=== PATIENT | female | born 1945 | race Caucasian/White ===

== ENCOUNTER 2021-05-29 07:31 | Observation (INO) ==
--- NOTE | 2021-02-06 12:10 | PAT Medication Instructions ---
Medication Instructions Date of Service February 06, 2021 Home Medications acebutolol 200 mg capsule 200 mg PO BID albuterol sulfate 90 mcg/actuation aerosol inhaler (ProAir HFA) 2 puff INHALATION Q6H PRN alprazolam 0.25 mg tablet (Xanax) 0.25 mg PO HS cholecalciferol (vitamin D3) 25 mcg (1,000 unit) capsule 75 mcg PO QAM escitalopram oxalate 10 mg tablet (Lexapro) 10 mg PO QAM losartan 25 mg tablet (Cozaar) 25 mg PO QAM rosuvastatin 20 mg tablet (Crestor) 20 mg PO HS wunoelzvdv-lajbwmkdlnhym-qfkvsxbn 50 mg-325 mg-40 mg tablet 1 tab PO Q4H PRN fenofibrate nanocrystallized 145 mg tablet 145 mg PO QAM fluticasone 250 mcg-salmeterol 50 mcg/dose blistr powdr for inhalation (Advair Diskus) 1 inh INHALATION BID ASK your surgeon for instructions jywbobgdkr-gwfogkvapxovm-thdwfalm 50 mg-325 mg-40 mg tablet 1 tab PO Q4H PRN STOP taking 48 hours before surgery fenofibrate nanocrystallized 145 mg tablet 145 mg PO QAM DO NOT take the morning of surgery cholecalciferol (vitamin D3) 25 mcg (1,000 unit) capsule 75 mcg PO QAM losartan 25 mg tablet (Cozaar) 25 mg PO QAM fluticasone 250 mcg-salmeterol 50 mcg/dose blistr powdr for inhalation (Advair Diskus) 1 inh INHALATION BID Take morning of surgery With a small sip of water, OTHERWISE NOTHING TO EAT OR DRINK AFTER MIDNIGHT: acebutolol 200 mg capsule 200 mg PO BID albuterol sulfate 90 mcg/actuation aerosol inhaler (ProAir HFA) 2 puff INHALATION Q6H PRN (use if needed; please bring rescue inhaler with you to hospital day of surgery if possible) escitalopram oxalate 10 mg tablet (Lexapro) 10 mg PO QAM fluticasone 250 mcg-salmeterol 50 mcg/dose blistr powdr for inhalation (Advair Diskus) 1 inh INHALATION BID Take evening before surgery acebutolol 200 mg capsule 200 mg PO BID albuterol sulfate 90 mcg/actuation aerosol inhaler (ProAir HFA) 2 puff INHALATION Q6H PRN (if needed) alprazolam 0.25 mg tablet (Xanax) 0.25 mg PO HS rosuvastatin 20 mg tablet (Crestor) 20 mg PO HS fluticasone 250 mcg-salmeterol 50 mcg/dose blistr powdr for inhalation (Advair Diskus) 1 inh INHALATION BID Other Notes If you have any questions please call us at [phone] or [phone] or [phone] or [phone]
--- NOTE | 2021-02-18 12:34 | Anesthesiology Consultation ---
Date of Service February 18, 2021 Assessment & Plan (1) Encounter for pre-operative examination: Chart Review Chart Review: Acceptable Risk for Surgery (pending cardio clearance and preop Covid testing results ) and Patient seen in Pre Admission Testing Will set up cardio clearance secondary to chest pain. Will await cardio note prior to deciding if patient is Outpatient Joint candidate - Check [facility] AM DOS Per PAT appt on 02/18/21, patient denies any recent travel or large group activities. No known Covid positive exposures or Covid related symptoms. No known Covid infection in the past 90 days. Pt is fully vaccinated for Covid.. Preop Covid testing scheduled 03/25/21 = will await results. Educated on importance of self quarantining, social distancing and wearing mask in public for the patient one week prior to surgery and after Covid testing done Consults Requested cardiac Teaching & Discussion Pre-Anesthesia Teaching/Discussion Notes: Instructed NPO after midnight before surgery,except medications with 15 cc of water. Medication instructions provided according to the [facility] guidelines. History Surgery Operation Date: 03/27/21 08:55 Proposed Procedures p Right Total Knee Arthroplasty - Josh Gaxiola, Height/Weight Height: 5 ft 1.25 in Weight: 73.2 kg Allergies Allergy/AdvReac Type Severity Reaction Status Date / Time hydrocodone AdvReac Mild Vomiting Verified 02/06/21 10:43 Medications Home Medications Medication Instructions Recorded Confirmed Last Taken acebutolol 200 mg capsule 200 mg PO BID 12/03/20 02/06/21 Unknown albuterol sulfate 90 mcg/actuation 2 puff INHALATION Q6H PRN 12/03/20 02/06/21 Unknown aerosol inhaler (ProAir HFA) alprazolam 0.25 mg tablet (Xanax) 0.25 mg PO HS 12/03/20 02/06/21 Unknown cholecalciferol (vitamin D3) 25 75 mcg PO QAM cap 12/03/20 02/06/21 Unknown mcg (1,000 unit) capsule escitalopram oxalate 10 mg tablet 10 mg PO QAM 12/03/20 02/06/21 Unknown (Lexapro) losartan 25 mg tablet (Cozaar) 25 mg PO QAM 12/03/20 02/06/21 Unknown rosuvastatin 20 mg tablet (Crestor) 20 mg PO HS 12/03/20 02/06/21 Unknown wwrpcunrzz-czmvknzykibel-luwfaxtp 1 tab PO Q4H PRN 02/06/21 02/06/21 Unknown 50 mg-325 mg-40 mg tablet fenofibrate nanocrystallized 145 145 mg PO QAM 02/06/21 02/06/21 Unknown mg tablet fluticasone 250 mcg-salmeterol 50 1 inh INHALATION BID 02/06/21 02/06/21 Unknown mcg/dose blistr powdr for inhalation (Advair Diskus) Past Medical History Medical History Anxiety and depression Arthritis Asthma USES PRN INHALER IN COLD AND HUMID WEATHER Diabetes mellitus, type 2 DIET CONTROLLED History of COVID-09 FEBRUARY 2020 (FATIGUE, LOW O2 LEVELS, LOSS OF TASTE/SMELL>ALL SYMPTOMS RES OLVED) History of transfusion 1973- s/p childbirth Hx of encephalopathy FROM SPIDER BITE Completely resolved Hyperlipidemia Hypertension Lesion of brain "VERY SMALL" 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 NGUYEN - last visit > 3 yrs ago per coding director Restless leg syndrome Exercise / Class Metabolic Activity II 4-5 Yardwork/Stairs/Walk up hill (ONE FLIGHT OF STAIRS - NO CHEST PAIN OR SOB ) Past Family History Family History Other No family history of adverse response to anesthesia Past Surgical History Surgical History History of appendectomy History of cataract surgery RT/LEFT History of section X 4 History of cholecystectomy History of colonoscopy History of colposcopy History of hysterectomy Past Anesthesia History No Hx of Anesthesia Complications and No Family Hx of Anesthesia Complications History of PONV No Hx of PONV and No Hx of Motion Sickness Social History Smoking Status: Never smoker Hx Alcohol Use: Yes alcohol intake frequency: holidays/special occasions only substance use type: does not use Review of Systems Occ sharp pain- left upper chest- occurs occ. Last seconds. No associated SOB or nausea. No specific triggers. No chest pain exertion. Snoring unknown. Patient denies shortness of breath, dyspnea on exertion, reflux, cough, wheezing, palpitations. No hx of seizures, [place]. No hx of blood clots. Physical Exam Vital Signs VITALS BP 151/70 P 60 TEMP 98.5 SP02 95% RESP 16 Constitutional no acute distress ENMT Mouth: no TMJ clicking Thyromental Distance: > or= 3.5 Finger Breadths (3.5) Mallampati Class: II Missing molar Neck + limited neck extension (moderate ) Respiratory normal respiratory effort; no respiratory distress Auscultation: lungs clear to auscultation bilaterally; no wheezes Cardiovascular Rate/Rhythm: regular rate and regular rhythm Heart Sounds: no murmur Vessels: no carotid bruit Musculoskeletal Spine: no pain with cervical ROM Extremities: extremities normal to inspection Psychiatric Orientation: alert Lab Results Anesthesia Preop Results Results Anesthesia Widget: WBC 6.29 K/uL (4.8-10.8) 02/18/21 Hgb 12.8 g/dL (12.0-16.0) 02/18/21 Hct 38.8 % (37-47) 02/18/21 Plt 287 K/uL (130-400) 02/18/21 Na 141 mmol/L (136-145) 02/18/21 K 4.0 mmol/L (3.5-5.1) 02/18/21 Cl 109 mmol/L (98-107) H 02/18/21 CO2 28 mmol/L (21-32) 02/18/21 BUN 16 mg/dl (7-18) 02/18/21 Creat 0.87 mg/dl (0.6-1.2) 02/18/21 Glucose Level 108 mg/dl (70-99) H 02/18/21 PT 10.2 Seconds (9.0-12.0) 02/18/21 PTT 25.2 Seconds (21.0-31.0) 02/18/21 INR 1.0 (0.9-1.1) 02/18/21 HA1c 6.6 % (4.5-5.6) H 02/18/21 Blood Type O Positive 02/18/21 Antibody Screen NEGATIVE 02/18/21 Testing Electrocardiogram Date: 02/18/21 Findings: + NSR @ (60bpm ) Normal EKG per cardio. Chest X-Ray Date: 02/18/21 Findings: + NAD Echocardiogram Date: 06/29/17 EF: 60% LV Function: normal Other Findings: no LVH Valvular Disease: + no significant valvular disease No detectable pulmonary HTN
--- NOTE | 2021-05-28 16:19 | History & Physical Report ---
Date of Service May 28, 2021 Assessment & Plan (1) Osteoarthritis of right knee: We will proceed with a right total knee arthroplasty. Postoperatively she will be in our outpatient joint protocol. She will be started on aspirin for DVT prophylaxis and discharged home on oral pain medications. She plans to use [facility] in [place] upon discharge. History of Present Illness Chief Complaint: Osteoarthritis of the right knee. Primary Care Provider: NO PCP Willow is a pleasant 75-year-old female who is been dealing with chronic worsening right knee pain. X-rays and clinical examination have been diagnostic for advanced arthritis of the right knee. After failing conservative treatment, she has elected to proceed with a right total knee arthroplasty.. Allergies Allergy/AdvReac Type Severity Reaction Status Date / Time hydrocodone AdvReac Mild Vomiting Verified 05/26/21 14:51 Home Medications Medication Instructions Recorded Confirmed Type acebutolol 200 mg capsule 200 mg PO BID 12/03/20 05/26/21 History albuterol sulfate 90 mcg/actuation 2 puff INHALATION Q6H PRN 12/03/20 05/26/21 History aerosol inhaler (ProAir HFA) alprazolam 0.25 mg tablet (Xanax) 0.25 mg PO HS 12/03/20 05/26/21 History cholecalciferol (vitamin D3) 25 75 mcg PO QAM cap 12/03/20 05/26/21 History mcg (1,000 unit) capsule escitalopram oxalate 10 mg tablet 10 mg PO QAM 12/03/20 05/26/21 History (Lexapro) losartan 25 mg tablet (Cozaar) 50 mg PO BID 12/03/20 05/26/21 History rosuvastatin 20 mg tablet (Crestor) 20 mg PO HS 12/03/20 05/26/21 History bmclgalvxe-govzarjrongyf-hwqkftdx 1 tab PO Q4H PRN 02/06/21 05/26/21 History 50 mg-325 mg-40 mg tablet fenofibrate nanocrystallized 145 135 mg PO QAM 02/06/21 05/26/21 History mg tablet fluticasone 250 mcg-salmeterol 50 2 inh INHALATION QAM 02/06/21 05/26/21 History mcg/dose blistr powdr for inhalation (Advair Diskus) celecoxib 200 mg capsule (Celebrex) 200 mg PO BID #28 cap 05/27/21 Rx oxycodone-acetaminophen 5 mg-325 1 tab PO Q6H PRN #30 tab 05/27/21 Rx mg tablet (Percocet) Past Med/Surg History Medical History Anxiety and depression UNDER CONTROL Arthritis Asthma USES PRN INHALER IN COLD AND HUMID WEATHER Cellulitis RIGHT KNEE-RESOLVED Diabetes mellitus, type 2 DIET CONTROLLED History of COVID-19 DX'D HOME TEST END 02/2021-MILD COLD SYMPTOMS-RESOLVED JANUARY 2020 (FATIGUE, LOW O2 LEVELS, LOSS OF TASTE/SMELL>ALL SYMPTOMS RESOLVED) History of transfusion 1973- s/p childbirth Hx of encephalopathy FROM SPIDER BITE Completely resolved Hyperlipidemia Hypertension Lesion of brain "VERY SMALL" LESION VIA MRI- QUESTIONABLE STROKE AT AGE 34 (NO NEUROLOGIST)- NO ISSUES SINCE Meckel's diverticulitis HX Migraine Osteoarthritis PVC's (premature ventricular contractions) FOLLOWS WITH [facility]/DR. NGUYEN Restless leg syndrome Surgical History History of appendectomy History of cataract surgery RT/LEFT History of section X 4 History of cholecystectomy History of colonoscopy History of colposcopy History of hysterectomy Family History Other No family history of adverse response to anesthesia Social History Smoking Status: Never smoker Second Hand Exposure: No; Hx Alcohol Use: No Hx Substance Use: No Preferred Language: Ukrainian Communication Ability: Effective Residential Program Worker Required: No Beliefs That Will Affect Care: None Current Living Situation: Spouse current occupational status: retired Feels Safe at Home: Yes Assistive Devices: None Review of Systems All systems reviewed & are unremarkable except as noted in HPI & below. Physical Exam On physical examination of the right knee, she does have a varus deformity. She is range of motion of 0 to 120 degrees. She is no instability. She has pain of the distal medial femoral condyle and over the medial joint line.. Constitutional WD/WN, vitals as above Eyes PERRL, conjunctivae normal, anicteric sclerae ENMT external ear and nose normal, oropharynx normal Neck trachea midline, no thyromegaly Respiratory normal respiratory effort Cardiovascular RRR, no murmur, no edema Gastrointestinal (Abdomen) normal bowel sounds, soft, nontender, no hepatosplenomegaly Psychiatric A+Ox3, euthymic affect Results & Data Results & Data Laboratory Results . Diagnostic Findings X-rays of the right knee show advanced osteoarthritis with joint space narrowing, osteophyte formation, and qgqf-ga-kzfs articulation. PG Care Time/CCT Total # of Minutes Spent Total Time Spent with Patient: Total time spent is greater than 50% in coordination of care (as documented) at patient's floor/unit and/or counseling patient: Coding Level of Care Code None Diagnoses Osteoarthritis of right knee M17.11
[~2021-05-29 07:31] MED LIST: ACETAMINOPHEN 500 MG TAB PO SCH; BUPIVACAINE 0.5 % 5 MG/1 ML PF 10ML VIAL ONE; FAMOTIDINE 20 MG TAB PO SCH; GABAPENTIN 300 MG CAP PO SCH; Ketorolac (*for OR use only*) 30 MG, dexAMETHasone 4 MG, KETAMINE HCL (**OR use only) 1... INFIL SCH; LIDOCAINE 2%/EPINEPHRINE 1:200,000 20 ML SDV ONE; LR 500ML BOLUS, THEN 15ML/HR IV SCH; LR 60ML/HR IV SCH; TRANEXAMIC ACID 1,000 MG **IV Intra-op IV SCH; TRANEXAMIC ACID 1,000 MG **IV Pre-op IV SCH; ceFAZolin 1000MG 1,000 MG/7.5 ML SYR IV SCH; dexAMETHasone 4 MG TAB PO SCH
[2021-05-29 08:13] LABS: Basophils # (auto) 0.06 K/uL (0-0.2); Basophils % (auto) 0.7 %; Eosinophils # (auto) 0.37 K/uL (0-0.5); Eosinophils % (auto) 4.4 %; Hemoglobin 13.3 g/dL (12.0-16.0); Immature Granulocytes # (auto) 0.02 K/uL (0.00-0.02); Immature Granulocytes % (auto) 0.2 %; Lymphocytes # (auto) 2.68 K/uL (1.2-3.4); Lymphocytes % (auto) 31.8 %; Mean Corpuscular Hemoglobin 30.2 pg (25-34); Mean Corpuscular Hgb Conc 34.1 g/dL (32-36); Mean Corpuscular Volume 88.4 fL (80-100); Mean Platelet Volume 9.9 fL (7.4-10.4); Monocytes % (auto) 11.9 %; Platelet Count 298 K/uL (130-400); RDW Coefficient of Variation 13.2 % (11.5-14.5); RDW Standard Deviation 42.7 fL (36.4-46.3); Red Blood Count 4.41 M/uL (4.2-5.4); White Blood Count 8.43 K/uL (4.8-10.8)
[2021-05-29 08:24] LABS: Partial Thromboplastin Ratio 0.9; Partial Thromboplastin Time 25.1 Seconds (21.0-31.0); Prothrombin Time 10.4 Seconds (9.0-12.0)
[2021-05-29 08:31] LABS: Calcium 9.6 mg/dl (8.5-10.1); Creatinine Clr Calc Pharmacy 52.5 ml/min; Est GFR (African American) 75.5 ml/min; Est GFR (Non-African American) 65.2 ml/min; Potassium 3.9 mmol/L (3.5-5.1)
[2021-05-29] MEDS ORDERED: PROPOFOL IV EMULSION 10 MG/ML 20 ML VIAL IV ONE (08:43)
[2021-05-29] MEDS ORDERED: ONDANSETRON INJ 2 MG/ML 2 ML VIAL ONE ×2 (08:43→11:27)
[2021-05-29] MEDS ORDERED: LIDOCAINE 2% 2 ML VIAL/AMP(20MG/ML) INFIL ONE (08:43)
[2021-05-29] MEDS ORDERED: MIDAZOLAM HCL 1 MG/ML 2ML VIAL ONE (08:43)
--- NOTE | 2021-05-29 09:31 | History & Physical Bridge Note ---
Date of Service May 29, 2021 History & Physical Bridge Note I have examined the patient, reviewed the History & Physical and in the interval since the performance of the History & Physical I have noted the following changes of clinical significance: no changes noted
[2021-05-29] MEDS ORDERED: ATROPINE SULFATE 0.1 MG/ML 10ML SYR IV PRN (09:45)
[2021-05-29] MEDS ORDERED: fentaNYL citrate 100 MCG/2 ML VIAL IV PRN (09:45)
[2021-05-29] MEDS ORDERED: ePHEDrine sulfate 50 MG/ML AMP IV PRN (09:45)
[2021-05-29] MEDS ORDERED: ONDANSETRON INJ 2 MG/ML 2 ML VIAL IV PRN ×2 (09:45→16:49)
[2021-05-29] MEDS ORDERED: ORTHO JOINT ANESTHETIC ONE (10:02)
[2021-05-29] MEDS ORDERED: oxyCODONE/ACETAMINOPHEN 5mg/325mg TAB PO PRN (11:41)
--- NOTE | 2021-05-29 11:43 | Operative Report ---
PG Post Operative Report Pre & Post Diagnosis Operation Date: 05/29/21 10:00 Pre-Op Diagnosis: Osteoarthritis of the right knee Post-Op Diagnosis: Osteoarthritis of the right knee I identified the patient and participated in the time-out.: Yes Procedure Operation Date: 05/29/21 10:00 Actual Procedures p Right Total Knee Arthroplasty(Right) - Josh Gaxiola DO Surgeon Josh Gaxiola DO Hub Cutter Josh Loera PAC Estimated Blood Loss 10 Findings Consistent with Post-Op Diagnosis Specimens Right femoral and tibial bone Complications none Disposition Disposition: Recovery Room Indications Willow is a pleasant 75-year-old female who is been doing with chronic increasing right knee pain. X-rays and clinical examination are diagnostic for advanced arthritis of the right knee. After failing conservative treatment, she elected proceed with a right total knee arthroplasty. Description of Procedure Implants used: I used a [employer] Persona total knee arthroplasty system with a size 7 narrow PS femur, D tibia, 31 oval patella, and a size 10 CPS polyethylene bearing. All components were cemented in place with Biomet cement. Willow arrived [facility] for the above procedure. She was seen in the preoperative holding area and the operative extremity was identified and signed. She was given a preoperative antibiotic, TXA, and epidural anesthetic and an adductor nerve block. She was taken back to the operating room and laid on the table in supine position. She was given basic sedation. The operative knee was then prepped and draped in sterile fashion. A timeout wa s done, and the patient and the operative extremity was properly identified. A midline incision was made directly over the patella. Dissection was taken down to the extensor mechanism. A subvastus arthrotomy was used. The medial retinaculum was released and the fat pad was mostly excised. The knee was flexed and the ACL, PCL, and meniscus were removed. A drill was sent down the center of the femoral canal followed by an intramedullary sadia. Off that sadia a distal femoral cutting block was placed. 9 mm was resected off the distal femur at 5 of valgus. A posterior referencing AP sizing guide was then placed on the distal femur. The femur measured to be a size 7. 2 drill holes were placed in 3 of external rotation. A 4-in-1 cutting block was then impacted into place. Anterior, posterior, and chamfer cuts were then made. The proximal tibia was then exposed. An external tibial alignment guide was placed. A tibial cut guide was then anchored in place and the proximal tibia was then resected. The posterior aspect of the knee was then opened up and any additional meniscus fragments and osteophytes were removed. The tibia measured to be a size D. The tibial plate was then placed in the appropriate rotation and the tibia was drilled and punched. Trial components were then placed. I used a size 10 CPS polyethylene insert. The knee was brought through a full range of motion and felt to be stable. The peg holes for the femoral component were then drilled. The patella was then everted and 9 mm was resected off the posterior aspect of the patella. The patella measured to be a size 31 oval. 3 peg holes were then drilled. A trial patella was placed. The knee was once again brought through a full range of motion and felt to be stable. Trial components were then removed. The surrounding soft tissues were injected with 100 cc of an orthopedic pain control cocktail. All components were then cemented into place with Biomet cement. The final polyethylene insert was then snapped into place. Once cement was dry the tourniquet was deflated. Hemostasis was obtained. A dilute betadyne lavage was then done for 3 minutes. The joint was then irrigated with normal saline solution. The subvastus arthrotomy was then closed with #1 Vicryl suture. The skin was closed with 2-0 Vicryl, 3-0V lock suture, and aleta. A soft compressive dressing was placed. She was then transferred to a hospital bed and taken to the postanesthesia care unit in stable condition. She tolerated the procedure well. Josh Loera PA-C, was present for the entire procedure. He was critical for patient positioning, prepping, draping, retraction exposure, wound closure and application of sterile dressing. I attest to the content of the Intraoperative Record and any orders documented therein. Any exceptions are noted below.
--- NOTE | 2021-05-29 12:19 | Anesthesia Procedure Note ---
Date of Service May 29, 2021 Anesthesia Post Epidural Note Vital Signs Vital Signs: Temp Pulse Resp BP Pulse Ox 36.9 C 70 18 159/88 H 95 05/29/21 08:22 05/29/21 08:22 05/29/21 08:22 05/29/21 08:22 05/29/21 08:22 Notes Mental Status: alert / awake / arousable Patient Amnestic to Procedure: Yes Nausea / Vomiting: adequately controlled Pain: adequately controlled Airway Patency, RR, SpO2: stable & adequate BP & HR: stable & adequate Hydration State: stable & adequate Neuraxial Anesthesia: was administered and sensory block is resolving Anesthetic Complications: no major complications apparent and Pt Satisfied with anesthetic care Epidural: Removed without complications
--- NOTE | 2021-05-29 12:46 | XRay Report ---
XR knee RT 1 or 2V routine CLINICAL HISTORY: Surgical Post Op. Status post total knee replacement COMPARISON STUDY: No previous studies for comparison. TECHNIQUE: 2 right knee views FINDINGS: The patient is status post total knee replacement. The prosthetic components are in anatomi c alignment with no acute abnormality seen. Air is present within the soft tissues from the procedure . Skin aleta are seen anteriorly. IMPRESSION: 1. Status post total knee replacement ACT 112: Negative or not required by law. Electronically signed by: Telly Batista M.D. 05/29/2021 12:45 PM
--- NOTE | 2021-05-29 13:12 | Anesthesiology Progress Note ---
Date of Service May 29, 2021 Anesthesia Post Procedure Vital Signs Vital Signs: Temp Pulse Pulse Resp BP BP Pulse Ox 05/29/21 12:50 98.1 F 62 16 99/62 L 92 05/29/21 12:45 97.7 F 64 17 129/67 92 05/29/21 12:35 62 16 129/87 94 05/29/21 12:25 64 17 135/73 92 05/29/21 12:15 66 13 129/78 98 05/29/21 12:05 98.6 F 67 15 133/72 98 05/29/21 08:22 98.4 F 70 18 159/88 H 95 Pain Intensity Right Knee: Pain Intensity: 4 Transfer of Care Handoff Completed per policy Notes Mental Status: alert / awake / arousable and participated in evaluation Patient Amnestic to Procedure: Yes Nausea / Vomiting: adequately controlled Pain: adequately controlled Airway Patency, RR, SpO2: stable & adequate BP & HR: stable & adequate Hydration State: stable & adequate Neuraxial Anesthesia: was administered and sensory block is resolving Anesthetic Complications: no major complications apparent and Pt Satisfied with anesthetic care
[2021-05-29] MEDS ORDERED: bisacodyL 10 MG SUPP PR PRN (16:49)
[2021-05-29] MEDS ORDERED: HYDROmorphone INJ 0.5 MG/0.5 ML SYR IV PRN (16:49)
[2021-05-29] MEDS ORDERED: METOCLOPRAMIDE HCL INJ 5 MG/ML 2 ML VIAL IV PRN (16:49)
[2021-05-29] MEDS ORDERED: NALOXONE HCL 0.4 MG/1 ML VIAL/CARP IV PRN (16:49)
[2021-05-29] MEDS ORDERED: MAGNESIUM HYDROXIDE SUSP 30 ML UDC PO PRN (16:49)
[2021-05-29] MEDS ORDERED: ALBUTEROL HFA 8 GM INHALER INH PRN (16:59)
[2021-05-29] MEDS: SODIUM CHLORIDE 0.9% 1000ML 1,000 ML IV SCH (17:03)
[2021-05-29] MEDS: KETOROLAC TROMETHAMINE 15 MG/ML VIAL IV SCH (18:04)
[2021-05-29] MEDS: DOCUSATE SODIUM 100 MG CAP PO SCH (20:04)
[2021-05-29] MEDS: ASPIRIN 81 MG ECTAB PO SCH (20:04)
[2021-05-29] MEDS: LOSARTAN POTASSIUM 50 MG TAB PO SCH (20:05)
[2021-05-29] MEDS: ACEBUTOLOL HCL 200 MG CAPSULE PO SCH (20:05)
[2021-05-29] MEDS ORDERED: ALPRAZolam 0.25 MG TABLET PO SCH (21:00)
[2021-05-29] MEDS ORDERED: ROSUVASTATIN CALCIUM 20 MG TAB PO SCH (21:00)
[2021-05-29] MEDS ORDERED: SENNA 8.6 MG TAB PO SCH (21:00)
[2021-05-29] MEDS: ACETAMINOPHEN 500 MG TAB PO SCH (21:50)
[2021-05-29] MEDS: ceFAZolin 2000MG 2,000 MG/15 ML SYR IV SCH (21:51)
[2021-05-30] MEDS: KETOROLAC TROMETHAMINE 15 MG/ML VIAL IV SCH ×2 (00:13→05:15)
[2021-05-30] MEDS: oxyCODONE HCL IR 5 MG TAB (IMMEDIATE RELEASE) PO PRN ×3 (00:19→10:45)
[2021-05-30] MEDS: SODIUM CHLORIDE 0.9% 1000ML 1,000 ML IV SCH (03:20)
[2021-05-30] MEDS: ACETAMINOPHEN 500 MG TAB PO SCH (05:14)
[2021-05-30] MEDS: ceFAZolin 2000MG 2,000 MG/15 ML SYR IV SCH (05:51)
[2021-05-30] MEDS ORDERED: dexAMETHasone 4 MG TAB PO SCH (08:00)
--- NOTE | 2021-05-30 08:23 | Orthopedic Progress Note ---
Date of Service May 30, 2021 Assessment & Plan (1) Status post right knee replacement: Overall she is doing fairly well. She will be seen by physical therapy today for ambulation and range of motion exercises. She is on aspirin for DVT prophylaxis. She can be discharged home later today. She will follow-up with orthopedics in 2 weeks. Aron Daugherty was seen and examined at bedside this morning. Overall she is doing fairly well. Still having too much pain in the right knee. She has a little bit more motion in her leg today. She has been up and ambulating to the bathroom. She has no complaints.. Review of Systems All systems reviewed & are unremarkable except as noted in HPI & below. Physical Exam On physical examination of the right knee, the dressing is clean and dry. Her legs out full extension. She has active dorsiflexion plantarflexion of the right ankle.. Results & Data Results & Data Laboratory Results . Diagnostic Findings Postoperative x-rays of the right knee show the prosthesis to be in anatomic alignment without any evidence of fracture, screws, or loosening. PG Care Time/CCT Total # of Minutes Spent Total Time Spent with Patient: Total time spent is greater than 50% in coordination of care (as documented) at patient's floor/unit and/or counseling patient: Coding Level of Care Code 63544 Post Operative Follow-Up Diagnoses Status post right knee replacement Z96.651
--- NOTE | 2021-05-30 08:24 | Discharge Summary ---
Date of Service May 30, 2021 Admission HPI (Per Admitting) Willow is a pleasant 75-year-old female who is been dealing with chronic worsening right knee pain. X-rays and clinical examination have been diagnostic for advanced arthritis of the right knee. After failing conservative treatment, she has elected to proceed with a right total knee arthroplasty.. Admission Exam (Per Admitting) On physical examination of the right knee, she does have a varus deformity. She is range of motion of 0 to 120 degrees. She is no instability. She has pain of the distal medial femoral condyle and over the medial joint line.. Principal Diagnosis Same as "Discharge Diagnosis" noted below under Discharge Instructions. Discharge Exam On physical examination of the right knee, the dressing is clean and dry. Her legs out full extension. She has active dorsiflexion plantarflexion of the right ankle.. Discharge Data Procedures Performed Operation Date: 05/29/21 10:00 Actual Procedures p Right Total Knee Arthroplasty(Right) - Josh Gaxiola DO Ordered Studies 05/29/21 05:00 US - OR guided needle placemen Routine Hospital Course (1) Status post right knee replacement: On May 29, 2021 Willow arrived at [facility] and underwent a right knee replaced without complication. Postoperatively she was started on aspirin for DVT prophylaxis. She was initially in our outpatient joint protocol. Unfortunately she did not do well with physical therapy. She was having too much weakness in the right leg so she was admitted overnight. She was then transferred to the general orthopedic floors. On postop day #1 her vital signs were stable and her pain was well controlled. She was able to participate well with physical therapy doing ambulation and range of motion exercises. She was then discharged home. She will follow with orthopedics in 2 weeks. PG Care Time/CCT Total # of Minutes Spent Total Time Spent with Patient: Total time spent is greater than 50% in coordination of care (as documented) at patient's floor/unit and/or counseling patient: Discharge Plan Discharge Items Reason For Visit: POST OP Discharge Diagnosis: Right knee replacement Activity: Resume your previous activity Call non-emergency contact if: your wound has increased redness and your wound has increased drainage Follow-up/Referrals: [facility] [Outside] Doretha Liao MD [Primary Care Provider] - Addtl Attending Provider Instructions: Activity and Therapy Recommendations: * If you are using [facility] then therapy will be provided at your home until they feel you have accomplished all of your goals. * If you are using [facility] then Physical Therapy will be provided until they feel you are ready to start Outpatient Physical Therapy. * If you are not using home therapy then Outpatient Physical Therapy should start about 3-5 days from your day of surgery. Therapy will last about 6-10 weeks * It is important not to put a pillow under your knee when you are relaxing or sleeping. It is just as important to make sure you are getting your knee perfectly straight as it is to regain your knee bend. * You were shown a series of exercises in the hospital. Do these exercises three times each day including the exercises you were shown in physical therapy. * Get up and walk several times each day. For the first four weeks, try not to stand or walk for more than one hour at a time. If you do stand or walk for more than one hour, you will not hurt anything, but your leg will likely swell. * As you feel comfortable, you may change from the walker or crutches to a cane and then to independent walking. Medications: * Narcotic You will likely be sent home from the hospital with a prescription for the narcotic pain medication that worked best throughout your stay. * Aspirin Most patients will be required to take Aspirin 81mg twice a day for 6 weeks after surgery. This is obtained [id number] and a prescription is not necessary. * Other medications may be prescribed for specific circumstances. If you have any questions, please call the office at . * Resume previous home medications unless otherwise instructed TEDs/Elastic Stockings: The white elastic stockings help limit swelling and prevent blood clots from forming in your legs.~ The more you wear them, the more they work. Wear them for six weeks. Dressing Care: The dressing can be changed after physical therapy on postop day #1. Daily dry dressing changes for a few days, especially if the incision is still draining some. If the incision is not draining then you may leave the aleta open to air. If there is a little bit of drainage or if the aleta are getting stuck on your clothing then cover the incision with a dry dressing. The aleta will be removed at your 2 week follow-up appointment. Showering: You may shower 5 days from the day of surgery as long as the incision is no longer draining. You may shower with the aleta exposed. Let soapy water run over the aleta and pat them dry. Do not scrub or soak the incision. Things To Watch For: * Drainage from the incision site that occurs more than one week after your surgery. * Increased redness at the incision site. * Fever above 102 degrees Fahrenheit. * Unusual chest pain or shortness of breath. * Call [facility] at with any of the above problems Follow-Up Visit: Follow-up with Dr. Gaxiola's PA (Josh Loera) 2-3 weeks after your day of surgery. He will remove your aleta and answer any questions. If you have any additional questions or concerns, Dr Gaxiola is usually in the office at the same time and will be available An appointment was probably scheduled when you signed-up for surgery in the office. If you have any questions call Office Instructions: More detailed instructions as well as Frequently Asked Questions were provided in a folder by our office when you signed-up for surgery. Please review these instructions when you get home. If you have any further questions or concerns, please feel free to call the office at [phone] Pending Studies at Discharge: No Stand-Alone Forms: My [facility] Medications and DC Order Prescriptions: New aspirin [Adult Aspirin Regimen] 81 mg tablet,delayed release (DR/EC) 81 mg PO BID Qty: 84 RF: 0 Continued celecoxib [Celebrex] 200 mg capsule 200 mg PO BID Qty: 28 RF: 0 oxycodone-acetaminophen [Percocet] 5-325 mg tablet 1 tab PO Q6H PRN (Reason: pain) Qty: 30 RF: 0 acebutolol 200 mg capsule 200 mg PO BID RF: 0 losartan [Cozaar] 25 mg tablet 50 mg PO BID RF: 0 rosuvastatin [Crestor] 20 mg tablet 20 mg PO HS RF: 0 escitalopram oxalate [Lexapro] 10 mg tablet 10 mg PO QAM RF: 0 albuterol sulfate [ProAir HFA] 90 mcg/actuation HFA aerosol inhaler 2 puff inhalation Q6H PRN (Reason: SHORT OF BREATH) RF: 0 alprazolam [Xanax] 0.25 mg tablet 0.25 mg PO HS RF: 0 cholecalciferol (vitamin D3) 25 mcg (1,000 unit) capsule 75 mcg PO QAM RF: 0 fluticasone propion-salmeterol [Advair Diskus] 250-50 mcg/dose Blister With Device 2 inh INHALATION QAM RF: 0 gbnhvcspcl-htlwoqpjerwqe-ggxl 50-325-40 mg Tablet 1 tab PO Q4H PRN (Reason: Migraine Headache) RF: 0 fenofibrate nanocrystallized [Tricor] 145 mg Tablet 135 mg PO QAM RF: 0 Admission Data Admit Date/Time: 05/29/21 15:49 Attending Provider: Josh Gaxiola Admit Provider: Josh Gaxiola Primary Care Provider: Doretha Liao V.
[2021-05-30] MEDS: ACEBUTOLOL HCL 200 MG CAPSULE PO SCH (08:44)
[2021-05-30] MEDS: ASPIRIN 81 MG ECTAB PO SCH (08:44)
[2021-05-30] MEDS: DOCUSATE SODIUM 100 MG CAP PO SCH (08:45)
[2021-05-30] MEDS: LOSARTAN POTASSIUM 50 MG TAB PO SCH (08:47)
[2021-05-30] MEDS ORDERED: MULTIVITAMIN TAB PO SCH (09:00)
[2021-05-30] MEDS ORDERED: ESCITALOPRAM OXALATE 10 MG TAB PO SCH (09:00)
[2021-05-30] MEDS ORDERED: FLUTICASONE/VILANTEROL 200/25MCG 14 PUFFS/INHALER INH SCH (09:00)
== END 2021-05-30 10:53 | disposition home health service (06) ==
LOC: ASU 07:31 → 3E 07:31

== ENCOUNTER 2022-04-23 07:48 | Observation (INO) ==
--- NOTE | 2022-03-29 10:34 | PAT Medication Instructions ---
Medication Instructions Date of Service March 29, 2022 Home Medications Medication Instructions Recorded celecoxib 200 mg capsule (Celebrex) 200 mg PO BID #28 caps 05/27/21 oxycodone-acetaminophen 5 mg-325 1 tab PO Q6H PRN pain #30 tabs 05/27/21 mg tablet (Percocet) aspirin 81 mg tablet,delayed 81 mg PO BID #84 tabs 05/29/21 release (Adult Aspirin Regimen) oxycodone-acetaminophen 5 mg-325 1 tab PO Q6H PRN pain #30 tabs 06/15/21 mg tablet (Percocet) doxycycline hyclate 100 mg tablet 100 mg PO BID 10 days #20 tabs 06/22/21 ibuprofen 600 mg tablet 600 mg PO TID PRN pain #90 tabs 07/28/21 oxycodone-acetaminophen 5 mg-325 1 tab PO Q6H PRN pain #30 tabs 07/28/21 mg tablet (Percocet) tramadol 50 mg tablet 50 mg PO Q6H PRN pain #20 tabs 09/01/21 acebutolol 200 mg capsule 200 mg PO BID albuterol sulfate 90 mcg/actuation aerosol inhaler (ProAir HFA) 2 puff inhalation Q6H PRN SHORT OF BREATH alprazolam 0.25 mg tablet (Xanax) 0.25 mg PO HS cholecalciferol (vitamin D3) 25 mcg (1,000 unit) capsule 75 mcg PO QAM escitalopram oxalate 10 mg tablet (Lexapro) 10 mg PO QAM losartan 25 mg tablet (Cozaar) 50 mg PO BID rosuvastatin 20 mg tablet (Crestor) 20 mg PO HS oxzcseilge-unzwjwmccgxos-xpwqxdgl 50 mg-325 mg-40 mg tablet 1 tab PO Q4H PRN Migraine Headache fenofibrate nanocrystallized 145 mg tablet (Tricor) 135 mg PO QAM fluticasone 250 mcg-salmeterol 50 mcg/dose blistr powdr for inhalation (Advair Diskus) 2 inh inhalation HS celecoxib 200 mg capsule (Celebrex) 200 mg PO BID oxycodone-acetaminophen 5 mg-325 mg tablet (Percocet) 1 tab PO Q6H PRN pain aspirin 81 mg tablet,delayed release (Adult Aspirin Regimen) 81 mg PO BID oxycodone-acetaminophen 5 mg-325 mg tablet (Percocet) 1 tab PO Q6H PRN pain doxycycline hyclate 100 mg tablet 100 mg PO BID ibuprofen 600 mg tablet 600 mg PO TID PRN pain oxycodone-acetaminophen 5 mg-325 mg tablet (Percocet) 1 tab PO Q6H PRN pain tramadol 50 mg tablet 50 mg PO Q6H PRN pain tiotropium bromide 2.5 mcg/actuation mist for inhalation (Spiriva Respimat) 2 inh inhalation QAM Continue as directed doxycycline hyclate 100 mg tablet 100 mg PO BID ASK your surgeon for instructions celecoxib 200 mg capsule (Celebrex) 200 mg PO BID ibuprofen 600 mg tablet 600 mg PO TID PRN pain cpxiyelnqx-gscshfbfmzory-giquyswi 50 mg-325 mg-40 mg tablet 1 tab PO Q4H PRN Migraine Headache ASK your prescriber and surgeon aspirin 81 mg tablet,delayed release (Adult Aspirin Regimen) 81 mg PO BID STOP taking 48 hours before surgery fenofibrate nanocrystallized 145 mg tablet (Tricor) 135 mg PO QAM DO NOT take the morning of surgery cholecalciferol (vitamin D3) 25 mcg (1,000 unit) capsule 75 mcg PO QAM losartan 25 mg tablet (Cozaar) 50 mg PO BID Take morning of surgery With a small sip of water, OTHERWISE NOTHING TO EAT OR DRINK AFTER MIDNIGHT: acebutolol 200 mg capsule 200 mg PO BID albuterol sulfate 90 mcg/actuation aerosol inhaler (ProAir HFA) 2 puff inhalati on Q6H PRN SHORT OF BREATH (use if needed; please bring rescue inhaler with you to hospital day of surgery if possible) escitalopram oxalate 10 mg tablet (Lexapro) 10 mg PO QAM oxycodone-acetaminophen 5 mg-325 mg tablet (Percocet) 1 tab PO Q6H PRN pain (if needed) oxycodone-acetaminophen 5 mg-325 mg tablet (Percocet) 1 tab PO Q6H PRN pain (if needed) oxycodone-acetaminophen 5 mg-325 mg tablet (Percocet) 1 tab PO Q6H PRN pain (if needed) tramadol 50 mg tablet 50 mg PO Q6H PRN pain (if needed) tiotropium bromide 2.5 mcg/actuation mist for inhalation (Spiriva Respimat) 2 inh inhalation QAM Take evening before surgery acebutolol 200 mg capsule 200 mg PO BID albuterol sulfate 90 mcg/actuation aerosol inhaler (ProAir HFA) 2 puff inhalation Q6H PRN SHORT OF BREATH (if needed) alprazolam 0.25 mg tablet (Xanax) 0.25 mg PO HS losartan 25 mg tablet (Cozaar) 50 mg PO BID rosuvastatin 20 mg tablet (Crestor) 20 mg PO HS fluticasone 250 mcg-salmeterol 50 mcg/dose blistr powdr for inhalation (Advair Diskus) 2 inh inhalation HS oxycodone-acetaminophen 5 mg-325 mg tablet (Percocet) 1 tab PO Q6H PRN pain (if needed) oxycodone-acetaminophen 5 mg-325 mg tablet (Percocet) 1 tab PO Q6H PRN pain (if needed) oxycodone-acetaminophen 5 mg-325 mg tablet (Percocet) 1 tab PO Q6H PRN pain (if needed) tramadol 50 mg tablet 50 mg PO Q6H PRN pain (if needed) Other Notes If you have any questions please call us at [phone] or [phone] or [phone] or [phone]
--- NOTE | 2022-03-31 12:26 | Anesthesiology Consultation ---
Date of Service March 31, 2022 Assessment & Plan (1) Encounter for pre-operative examination: - COVID screening: Per assessment on 03/31: No known COVID-19 positive contacts or current COVID-19 related symptoms. Travel screen negative. Patient vaccinated. At surgeon discretion if preop Covid testing being done. - S/P Right TKA (05/29/21): SAB at L4-5 + PNB at [facility]. No issues noted per post-op anesthesia progress note.Per discharge summary 05/30/21, "She was initially in our outpatient joint protocol. Unfortunately she did not do well with physical therapy. She was having too much weakness in the right leg so she was admitted overnight. She was then transferred to the general orthopedic floors. On postop day #1 her vital signs were stable and her pain was well controlled. She was able to participate well with physical therapy doing ambulation and range of motion exercises. She was then discharged home." - Outpatient joint assessment: Pt currently scheduled for inpatient pathway. Patient seen at [facility] 03/31. Patient voiced concern about consideration for outpatient and states she would not wish to be done through outpatient pathway due to issues post-operatively with right TKA (done 05/2021 at [facility]- see above for further details). - Check BSG AM DOS - Cardiology office visit (03/09/22): "ECG reviewed. This indicates sinus rhythm with heart rate 62. Significant ST/Twave abnormalities are not present. Ventricular ectopy is not present. Patient notes increase in palpitations especially over the holidays. In the past she was noted to have PVCs with complaints of palpitations. She had been started on acebutolol with resolution of ventricular ectopy. Her symptoms have returned. intravenous therapy nurse x14 days will be obtained to evaluate for dysrhythmia. Consideration may need to be given to increase dosage of acebutolol. Blood pressure slightly elevated today. Losartan has been increased at her last office visit to improve hypertensive management. Will reassess blood pressure at her next office visit. If remain elevated, medications will need to be adjusted." Per patient, holter monitor completed- awaiting recent holter monitor report ([facility] [place] office- per pt, done 02/2022) Chart Review Chart Review: Patient seen in Pre Admission Testing Teaching & Discussion Pre-Anesthesia Teaching/Discussion Notes: Instructed NPO after midnight before surgery,except medications with 15 cc of water. Medication instructions provided according to the PAT guidelines. History Surgery Operation Date: 04/23/22 09:15 Proposed Procedures p Left Total Knee Arthroplasty - Josh Gaxiola, Height/Weight Height: 5 ft 1.5 in Weight: 73.7 kg Allergies Allergy/AdvReac Type Severity Reaction Status Date / Time hydrocodone AdvReac Mild Vomiting Verified 03/29/22 07:59 Medications Home Medications Medication Instructions Recorded Confirmed Last Taken acebutolol 200 mg capsule 200 mg PO BID 12/03/20 03/29/22 05/29/21 07:00 albuterol sulfate 90 mcg/actuation 2 puff inhalation Q6H PRN SHORT OF 12/03/20 03/29/22 05/29/21 07:00 aerosol inhaler (ProAir HFA) BREATH alprazolam 0.25 mg tablet (Xanax) 0.25 mg PO HS 12/03/20 03/29/22 05/28/21 23:00 cholecalciferol (vitamin D3) 25 75 mcg PO QAM 12/03/20 03/29/22 03/24/21 mcg (1,000 unit) capsule escitalopram oxalate 10 mg tablet 10 mg PO QAM 12/03/20 03/29/22 05/28/21 07:00 (Lexapro) losartan 25 mg tablet (Cozaar) 50 mg PO BID 12/03/20 03/29/22 05/28/21 22:00 rosuvastatin 20 mg tablet (Crestor) 20 mg PO HS 12/03/20 03/29/22 05/11/21 elwaabzqsm-tjmjbengveyvr-lncftxjw 1 tab PO Q4H PRN Migraine Headache 02/06/21 03/29/22 05/26/21 50 mg-325 mg-40 mg tablet fenofibrate nanocrystallized 145 135 mg PO QAM 02/06/21 03/29/22 05/11/21 mg tablet (Tricor) fluticasone 250 mcg-salmeterol 50 2 inh inhalation HS 02/06/21 03/29/22 Unknown mcg/dose blistr powdr for inhalation (Advair Diskus) celecoxib 200 mg capsule (Celebrex) 200 mg PO BID #28 caps 05/27/21 03/29/22 Unknown oxycodone-acetaminophen 5 mg-325 1 tab PO Q6H PRN pain #30 tabs 05/27/21 Unknown mg tablet (Percocet) aspirin 81 mg tablet,delayed 81 mg PO BID #84 tabs 05/29/21 03/29/22 Unknown release (Adult Aspirin Regimen) oxycodone-acetaminophen 5 mg-325 1 tab PO Q6H PRN pain #30 tabs 06/15/21 03/29/22 Unknown mg tablet (Percocet) ibuprofen 600 mg tablet 600 mg PO TID PRN pain #90 tabs 07/28/21 03/29/22 Unknown oxycodone-acetaminophen 5 mg-325 1 tab PO Q6H PRN pain #30 tabs 07/28/21 03/29/22 Unknown mg tablet (Percocet) tramadol 50 mg tablet 50 mg PO Q6H PRN pain #20 tabs 09/01/21 03/29/22 Unknown tiotropium bromide 2.5 2 inh inhalation QAM 03/29/22 03/29/22 Unknown mcg/actuation mist for inhalation (Spiriva Respimat) Past Medical History Medical History Anxiety and depression Asthma Diabetes mellitus, type 2 Diet controlled History of COVID-19 Late 01/2021 (home test)- mild cold symptoms > resolved 01/2020- fatigue, low O2 levels, loss of taste/smell > resolved History of transfusion 1974 s/p childbirth Hx MRSA infection treated and "resolved" over 20 yrs ago Hx of encephalopathy r/t spider bite > "completely resolved" Hyperlipidemia Hypertension Lesion of brain "very small lesion" noted on remote MRI > questionable stroke at age 34, no deficits/issues since Meckel's diverticulitis HX Migraine Osteoarthritis PVC's (premature ventricular contractions) Follows with [facility]/Dr. Moncada Restless leg syndrome Exercise / Class Metabolic Activity II 4-5 Yardwork/Stairs/Walk up hill Past Family History Family History Other No family history of adverse response to anesthesia Past Surgical History Surgical History History of appendectomy History of cataract surgery R/L History of section x4 History of cholecystectomy History of colonoscopy History of colposcopy History of hysterectomy History of total knee replacement Right TKA (05/29/21): SAB at L4-5 + PNB at [facility]. No issues noted per post-op anesthesia progress note. Past Anesthesia History No Family Hx of Anesthesia Complications and Other (Issues with pain control during remote ) History of PONV No Hx of PONV and No Hx of Motion Sickness Social History Smoking Status: Never smoker Do You Dip or Chew Tobacco: No Hx Alcohol Use: Yes alcohol intake frequency: holidays/special occasions only Hx Substance Use: No substance use type: does not use Review of Systems + palpitations s/p recent holter monitor (cardiology evaluating). Patient denies chest pain, shortness of breath, dyspnea on exertion, fever, chills, cough, wheezing. Physical Exam Vital Signs VITALS BP 137/78 P 74 TEMP 99.0 SP02 95%RA RESP 16 PHYSICAL Full cervical extension range of motion. Full TMJ range of motion. TMD 4 finger breaths Mallampati Score 3 Dentition: missing molar Lungs: clear throughout to auscultation Cardiac: regular rate and rhythm, no murmurs noted Spine: normal Carotid arteries: negative bruit Extremities: no edema Lab Results Anesthesia Preop Results Results Anesthesia Widget: WBC 5.02 K/ul (4.8-10.8) 03/31/22 Hgb 13.4 g/dl (12.0-16.0) 03/31/22 Hct 39.1 % (37.0-47.0) 03/31/22 Plt 272 K/uL (130-400) 03/31/22 Na 142 mmol/L (136-145) 03/31/22 K 4.1 mmol/L (3.5-5.1) 03/31/22 Cl 108 mmol/L (98-107) H 03/31/22 CO2 23 mmol/L (21-32) 03/31/22 BUN 15 mg/dl (6-23) 03/31/22 Creat 0.75 mg/dl (0.6-1.2) 03/31/22 Glucose Level 109 mg/dl (70-99(Fasting)) H 03/31/22 PT 10.4 Seconds (9.0-12.0) 03/31/22 PTT 25.3 Seconds (21.0-31.0) 03/31/22 INR 1.0 (0.9-1.1) 03/31/22 Blood Type O Positive 03/31/22 Antibody Screen NEGATIVE 03/31/22 Testing Electrocardiogram Date: 03/09/22 Sinus rhythm at 62 bpm. Low voltage in precordial leads. Chest X-Ray Date: 03/31/22 FINDINGS: Cardiac mediastinal and hilar silhouettes are within normal limits. Eventration of the right hemidiaphragm. No pneumothorax, pleural effusion, airspace consolidation or overt pulmonary edema. Cholecystectomy. Degenerative changes of the shoulders and spine. IMPRESSION: No acute process. Echocardiogram Date: 06/29/17 EF 60%. No significant valvular disease. No detectable pulmonary hypertension. Stress Test Date: 06/29/17 No electrocardiographic criteria for myocardial ischemia. Exam was nondiagnostic as patient underwent pharmaceutical stress. 50% MPHR. Hemodynamic response to stress was normal. No evidence of myocardial ischemia/infarction on pharmacologic stress imaging. EF 73%. Wall motion is normal. COVID-19 Risk Screen Screening Information COVID-19 Screen Date: 03/31/22 Exposure 21 Days Family/Household +COVID Last 21 Days: No Exposure 10 Days Any COVID Exposure Last 10 Days: No Symptoms Last 10 Days Experienced COVID Sx Last 10 Days: No + COVID 0-90 Days COVID + in Last 0-90 Days: No
[~2022-04-23 07:48] MED LIST changes: -LIDOCAINE 2%/EPINEPHRINE 1:200,000 20 ML SDV ONE; +LR 15ML/HR IV SCH; -LR 500ML BOLUS, THEN 15ML/HR IV SCH; +ROPIVACAINE 0.5% 5 MG/ML 30 ML VIAL ONE; -ceFAZolin 1000MG 1,000 MG/7.5 ML SYR IV SCH; +ceFAZolin 2000MG 2,000 MG/15 ML SYR IV SCH
--- NOTE | 2022-04-23 09:28 | History & Physical Bridge Note ---
Date of Service April 23, 2022 History & Physical Bridge Note I have examined the patient, reviewed the History & Physical and in the interval since the performance of the History & Physical I have noted the following changes of clinical significance: no changes noted
[2022-04-23] MEDS ORDERED: LIDOCAINE 2% MPF LOCAL 5 ML VIAL INFIL ONE (09:39)
[2022-04-23] MEDS ORDERED: MIDAZOLAM HCL 1 MG/ML 2ML VIAL ONE (09:39)
[2022-04-23] MEDS ORDERED: fentaNYL citrate 100 MCG/2 ML VIAL ONE (09:39)
[2022-04-23] MEDS ORDERED: PROPOFOL IV EMULSION 10 MG/ML 20 ML VIAL IV ONE ×3 (09:39→11:39)
[2022-04-23] MEDS ORDERED: ePHEDrine sulfate 50 MG/ML AMP IV PRN (10:06)
[2022-04-23] MEDS ORDERED: HYDROmorphone INJ 1 MG/ML SYRINGE IV PRN (10:06)
[2022-04-23] MEDS ORDERED: PROMETHAZINE HCL 12.5 MG in SODIUM CHLORIDE 0.9% 50 ML IV PRN (10:06)
[2022-04-23] MEDS ORDERED: ATROPINE SULFATE 0.1 MG/ML 10ML SYR IV PRN (10:06)
[2022-04-23] MEDS ORDERED: fentaNYL citrate 100 MCG/2 ML VIAL IV PRN (10:06)
[2022-04-23] MEDS ORDERED: ONDANSETRON INJ 2 MG/ML 2 ML VIAL IV PRN ×2 (10:06→15:10)
[2022-04-23] MEDS ORDERED: ORTHO JOINT ANESTHETIC ONE (10:16)
[2022-04-23] MEDS ORDERED: ONDANSETRON INJ 2 MG/ML 2 ML VIAL ONE (10:40)
[2022-04-23] MEDS ORDERED: ePHEDrine sulfate 50 MG/ML AMP ONE (11:28)
[2022-04-23] MEDS ORDERED: PHENYLEPHRINE HCL 10 MG/ML VIAL ONE (11:28)
--- NOTE | 2022-04-23 11:52 | Operative Report ---
PG Post Operative Report Pre & Post Diagnosis Operation Date: 04/23/22 10:25 Pre-Op Diagnosis: Left Knee Degenerative Joint Disease Post-Op Diagnosis: Left Knee Degenerative Joint Disease I identified the patient and participated in the time-out.: Yes Procedure Operation Date: 04/23/22 10:25 Actual Procedures p Left Total Knee Arthroplasty(Left) - Josh Gaxiola DO Surgeon Josh Gaxiola DO Food Sales Clerk Josh Loera PA-C Estimated Blood Loss 30 Findings Consistent with Post-Op Diagnosis Specimens Left femoral and tibial bone Description of Procedure Implants used: I used a [employer] Person[employer] total knee arthroplasty system with a size 5 standard PS femur, C tibia, 31 oval patella, and a size 10 CPS polyethylene bearing. All components were cemented in place with Biomet cement. Willow arrived [facility] for the above procedure. She was seen in the preoperative holding area and the operative extremity was identified and signed. She was given a preoperative antibiotic, TXA, a spinal anesthetic and an adductor nerve block. She was taken back to the operating room and laid on the table in supine position. She was given basic sedation. The operative knee was then prepped and draped in sterile fashion. A timeout was done, and the patient and the operative extremity was properly identified. A midline incision was made directly over the patella. Dissection was taken down to the extensor mechanism. A midvastus arthrotomy was used. The medial retinaculum was released and the fat pad was mostly excised. The knee was flexed and the ACL, PCL, and meniscus were removed. A drill was sent down the center of the femoral canal followed by an intramedullary sadia. Off that sadia a distal femoral cutting block was placed. 9 mm was resected off the distal femur at 5 of valgus. A posterior referencing AP sizing guide was then placed on the distal femur. The femur measured to be a size 5. 2 drill holes were placed in 3 of external rotation. A 4-in-1 cutting block was then impacted into place. Anterior, posterior, and chamfer cuts were then made. The proximal tibia was then exposed. An external tibial alignment guide was placed. A tibial cut guide was then anchored in place and the proximal tibia was then resected. The posterior aspect of the knee was then opened up and any additional meniscus fragments and osteophytes were removed. The tibia measured to be a size C. The tibial plate was then placed in the appropriate rotation and the tibia was drilled and punched. Trial components were then placed. I used a size 10 CPS polyethylene insert. The knee was brought through a full range of motion and felt to be stable. The peg holes for the femoral component were then drilled. The patella was then everted and 9 mm was resected off the posterior aspect of the patella. The patella measured to be a size 31 oval. 3 peg holes were then drilled. A trial patella was placed. The knee was once again brought through a full range of motion and felt to be stable. Trial components were then removed. The surrounding soft tissues were injected with 100 cc of an orthopedic pain control cocktail. All components were then cemented into place with Biomet cement. The final polyethylene insert was then snapped into place. Once cement was dry the tourniquet was deflated. Hemostasis was obtained. A dilute betadyne lavage was then done for 3 minutes. The joint was then irrigated with normal saline solution. The midvastus arthrotomy was then closed with #1 Vicryl suture. The skin was closed with 2-0 Vicryl, 3-0V lock suture, and aleta. A soft compressive dressing was placed. She was then transferred to a hospital bed and taken to the postanesthesia care unit in stable condition. She tolerated the procedure well. Josh Loera PA-C, was present for the entire procedure. He was critical for patient positioning, prepping, draping, retraction exposure, wound closure and application of sterile dressing. I attest to the content of the Intraoperative Record and any orders documented therein. Any exceptions are noted below.
--- NOTE | 2022-04-23 12:37 | XRay Report ---
XR knee LT 1 or 2V routine CLINICAL HISTORY: Postoperative evaluation. COMPARISON: Knee radiographs July 15, 2021. FINDINGS: Alignment of the total left knee arthroplasty is anatomic. There is no periprosthetic frac ture. No unexpected radiopaque foreign bodies are present. There are skin aleta. IMPRESSION: Expected findings following total left knee arthroplasty. ACT 112: Negative or not required by law. Electronically signed by: Rah Payne M.D. 04/23/2022 12:36 PM
--- NOTE | 2022-04-23 13:29 | Anesthesiology Progress Note ---
Date of Service April 23, 2022 Anesthesia Post Procedure Vital Signs Vital Signs: Temp Pulse Pulse Resp BP Pulse Ox O2 Del Method 04/23/22 13:05 64 18 127/57 L 96 Nasal Cannula 04/23/22 12:55 36.5 C 63 18 123/63 96 Nasal Cannula 04/23/22 12:45 67 12 124/70 94 Room Air 04/23/22 12:35 68 20 131/72 96 Room Air 04/23/22 12:25 67 18 119/72 97 Oxymask 04/23/22 12:15 36.6 C 71 12 107/63 98 Oxymask 04/23/22 08:50 Room Air 04/23/22 08:19 37 C 73 22 171/86 H 96 Room Air O2 Flow Rate 04/23/22 13:05 2 04/23/22 12:55 2 04/23/22 12:45 04/23/22 12:35 04/23/22 12:25 4 04/23/22 12:15 6 04/23/22 08:50 04/23/22 08:19 Transfer of Care Handoff Completed per policy Notes Mental Status: alert / awake / arousable and participated in evaluation Nausea / Vomiting: adequately controlled Pain: adequately controlled Airway Patency, RR, SpO2: stable & adequate BP & HR: stable & adequate Hydration State: stable & adequate Neuraxial Anesthesia: was administered and sensory block is resolving Anesthetic Complications: no major complications apparent and Pt Satisfied with anesthetic care
[2022-04-23] MEDS ORDERED: HYDROmorphone INJ 0.5 MG/0.5 ML SYR IV PRN (15:10)
[2022-04-23] MEDS ORDERED: METOCLOPRAMIDE HCL INJ 5 MG/ML 2 ML VIAL IV PRN (15:10)
[2022-04-23] MEDS ORDERED: NALOXONE HCL 0.4 MG/1 ML VIAL/CARP IV PRN (15:10)
[2022-04-23] MEDS ORDERED: ALBUTEROL HFA 8 GM INHALER INH PRN (15:10)
[2022-04-23] MEDS ORDERED: MAGNESIUM HYDROXIDE SUSP 30 ML UDC PO PRN (15:10)
[2022-04-23] MEDS ORDERED: bisacodyL 10 MG SUPP PR PRN (15:10)
[2022-04-23] MEDS: ACETAMINOPHEN 500 MG TAB PO SCH ×2 (16:40→21:52)
[2022-04-23] MEDS: SODIUM CHLORIDE 0.9% 1000ML 1,000 ML IV SCH (16:40)
[2022-04-23] MEDS: KETOROLAC TROMETHAMINE 15 MG/ML VIAL IV SCH ×2 (17:33→22:40)
[2022-04-23] MEDS: ceFAZolin 2000MG 2,000 MG/15 ML SYR IV SCH (17:49)
[2022-04-23] MEDS ORDERED: ALPRAZolam 0.25 MG TABLET PO SCH (21:00)
[2022-04-23] MEDS ORDERED: ROSUVASTATIN CALCIUM 20 MG TAB PO SCH (21:00)
[2022-04-23] MEDS ORDERED: FLUTICASONE/VILANTEROL 200/25MCG 14 PUFFS/INHALER INH SCH (21:00)
[2022-04-23] MEDS ORDERED: SENNA 8.6 MG TAB PO SCH (21:00)
[2022-04-23] MEDS: ASPIRIN 81 MG ECTAB PO SCH (21:51)
[2022-04-23] MEDS: DOCUSATE SODIUM 100 MG CAP PO SCH (21:51)
[2022-04-23] MEDS: LOSARTAN POTASSIUM 50 MG TAB PO SCH (21:52)
[2022-04-23] MEDS: ACEBUTOLOL HCL 200 MG CAPSULE PO SCH (21:52)
[2022-04-24] MEDS: ceFAZolin 2000MG 2,000 MG/15 ML SYR IV SCH (01:54)
[2022-04-24] MEDS: SODIUM CHLORIDE 0.9% 1000ML 1,000 ML IV SCH (02:16)
[2022-04-24] MEDS: oxyCODONE HCL IR 5 MG TAB (IMMEDIATE RELEASE) PO PRN ×2 (03:31→10:53)
[2022-04-24] MEDS: KETOROLAC TROMETHAMINE 15 MG/ML VIAL IV SCH (05:51)
[2022-04-24] MEDS: ACETAMINOPHEN 500 MG TAB PO SCH (05:52)
[2022-04-24] MEDS ORDERED: dexAMETHasone 4 MG TAB PO SCH (08:00)
--- NOTE | 2022-04-24 08:22 | Orthopedic Progress Note ---
Date of Service April 24, 2022 Assessment & Plan (1) Status post left knee replacement: Overall she is doing fairly well. She is having a little bit of soreness in the back of her left knee. She will be seen by physical therapy today for ambulation and range of motion exercises. She is on aspirin for DVT pro phylaxis. If she does well with physical therapy, she can be discharged home later today. The nursing staff can change her dressing after physical therapy. She will follow-up with orthopedics in 2 weeks. Aron Daugherty was seen and examined at bedside this morning. Overall she is doing fairly well. She is having some pain in the back of her knee. She has been up to the bedside commode. She has no other complaints.. Review of Systems All systems reviewed & are unremarkable except as noted in HPI & below. Physical Exam On physical examination of left knee, the dressing is clean and dry. Her leg is out in full extension. She has active dorsiflexion plantarflexion of her left ankle.. Results & Data Results & Data Laboratory Results . Diagnostic Findings Postoperative x-rays of the left knee show the prosthesis to be in anatomic alignment without any evidence of fracture, screws, or loosening. PG Care Time/CCT Total # of Minutes Spent Total Time Spent with Patient: Total time spent is greater than 50% in coordination of care (as documented) at patient's floor/unit and/or counseling patient: Coding Level of Care Code 85966 Post Operative Follow-Up Diagnoses Status post left knee replacement Z96.652
--- NOTE | 2022-04-24 08:23 | Discharge Summary ---
Date of Service April 24, 2022 Principal Diagnosis Same as "Discharge Diagnosis" noted below under Discharge Instructions. Discharge Exam On physical examination of left knee, the dressing is clean and dry. Her leg is out in full extension. She has active dorsiflexion plantarflexion of her left ankle.. Discharge Data Procedures Performed Operation Date: 04/23/22 10:25 Actual Procedures p Left Total Knee Arthroplasty(Left) - Josh Gaxiola DO Ordered Studies 04/23/22 05:00 US - OR guided needle placemen Routine Hospital Course (1) Status post left knee replacement: On April 23, 2022 Willow arrived at [facility] and underwent a left knee replacement without complication. Postoperatively she was started on aspirin for DVT prophylaxis and transferred to the general orthopedic floors. Her hospital course was uneventful. On postop day #1, her vital signs were stable and her pain was well controlled. She was able to participate well with physical therapy doing ambulation and range of motion exercises. She was then discharged home. She will follow-up with orthopedics in 2 weeks. PG Care Time/CCT Total # of Minutes Spent Total Time Spent with Patient: Total time spent is greater than 50% in coordination of care (as documented) at patient's floor/unit and/or counseling patient: Discharge Plan Discharge Items Patient Disposition: Home - Home Health Services Reason For Visit: Left Knee Degenerative Joint Disease Discharge Diagnosis: Left knee replacement Activity: Per Instructions section Non-emergency contact: Surgeon Call non-emergency contact if: your wound has increased redness and your wound has increased drainage Follow-up/Referrals: Rosy Smith Sa, MD [Primary Care Provider] - Diet: Regular Addtl Attending Provider Instructions: Activity and Therapy Recommendations: * If you are using [facility] then therapy will be provided at your home until they feel you have accomplished all of your goals. * If you are using [facility] then Physical Therapy will be provided until they feel you are ready to start Outpatient Physical Therapy. * If you are not using home therapy then Outpatient Physical Therapy should start about 3-5 days from your day of surgery. Therapy will last about 6-10 weeks * It is important not to put a pillow under your knee when you are relaxing or sleeping. It is just as important to make sure you are getting your knee perfectly straight as it is to regain your knee bend. * You were shown a series of exercises in the hospital. Do these exercises three times each day including the exercises you were shown in physical therapy. * Get up and walk several times each day. For the first four weeks, try not to stand or walk for more than one hour at a time. If you do stand or walk for more than one hour, you will not hurt anything, but your leg will likely swell. * As you feel comfortable, you may change from the walker or crutches to a cane and then to independent walking. Medications: * Narcotic You will likely be sent home from the hospital with a prescription for the narcotic pain medication that worked best throughout your stay. * Aspirin Most patients will be required to take Aspirin 81mg twice a day for 6 weeks after surgery. This is obtained [id number] and a prescription is not necessary. * Other medications may be prescribed for specific circumstances. If you have any questions, please call the office at . * Resume previous home medications unless otherwise instructed TEDs/Elastic Stockings: The white elastic stockings help limit swelling and prevent blood clots from forming in your legs.~ The more you wear them, the more they work. Wear them for six weeks. Dressing Care: The dressing can be changed after physical therapy on postop day #1. Daily dry dressing changes for a few days, especially if the incision is still draining some. If the incision is not draining then you may leave the aleta open to air. If there is a little bit of drainage or if the aleta are getting stuck on your clothing then cover the incision with a dry dressing. The aleta will be removed at your 2 week follow-up appointment. Showering: You may shower 5 days from the day of surgery as long as the incision is no longer draining. You may shower with the aleta exposed. Let soapy water run over the aleta and pat them dry. Do not scrub or soak the incision. Things To Watch For: * Drainage from the incision site that occurs more than one week after your surgery. * Increased redness at the incision site. * Fever above 102 degrees Fahrenheit. * Unusual chest pain or shortness of breath. * Call [facility] at with any of the above problems Follow-Up Visit: Follow-up with Dr. Gaxiola's PA (Josh Loera) 2-3 weeks after your day of surgery. He will remove your aleta and answer any questions. If you have any additional questions or concerns, Dr Gaxiola is usually in the office at the same time and will be available An appointment was probably scheduled when you signed-up for surgery in the office. If you have any questions call Office Instructions: More detailed instructions as well as Frequently Asked Questions were provided in a folder by our office when you signed-up for surgery. Please review these instructions when you get home. If you have any further questions or concerns, please feel free to call the office at [phone] Pending Studies at Discharge: No Stand-Alone Forms: My [facility] Medications and DC Order Prescriptions: Continued celecoxib [Celebrex] 200 mg capsule 200 mg PO BID Qty: 28 0RF Rx Instructions: Take for two weeks after surgery oxycodone-acetaminophen [Percocet] 5-325 mg tablet 1 tab PO Q6H PRN (Reason: pain) Qty: 30 0RF ibuprofen 600 mg tablet 600 mg PO TID PRN (Reason: pain) Qty: 90 1RF oxycodone-acetaminophen [Percocet] 5-325 mg tablet 1 tab PO Q6H PRN (Reason: pain) Qty: 30 0RF tramadol 50 mg tablet 50 mg PO Q6H PRN (Reason: pain) Qty: 20 0RF acebutolol 200 mg capsule 200 mg PO BID losartan [Cozaar] 25 mg tablet 50 mg PO BID rosuvastatin [Crestor] 20 mg tablet 20 mg PO HS escitalopram oxalate [Lexapro] 10 mg tablet 10 mg PO QAM albuterol sulfate [ProAir HFA] 90 mcg/actuation HFA aerosol inhaler 2 puff inhalation Q6H PRN (Reason: SHORT OF BREATH) alprazolam [Xanax] 0.25 mg tablet 0.25 mg PO HS cholecalciferol (vitamin D3) 25 mcg (1,000 unit) capsule 75 mcg PO QAM fluticasone propion-salmeterol [Advair Diskus] 250-50 mcg/dose Blister With Device 2 inh INHALATION HS [id number] 50-325-40 mg Tablet 1 tab PO Q4H PRN (Reason: Migraine Headache) fenofibrate nanocrystallized [Tricor] 145 mg Tablet 135 mg PO QAM Spiriva Respimat 2.5 mcg/actuation Mist 2 inh INHALATION QAM aspirin [Adult Aspirin Regimen] 81 mg tablet,delayed release (DR/EC) 81 mg PO BID 42 Days Qty: 84 0RF oxycodone-acetaminophen [Percocet] 5-325 mg tablet 1 tab PO Q6H PRN (Reason: pain) Qty: 30 0RF Admission Data Admit Date/Time: 04/23/22 12:16 Attending Provider: Josh Gaxiola Admit Provider: Josh Gaxiola Primary Care Provider: Rosy Smith Sa
[2022-04-24] MEDS: LOSARTAN POTASSIUM 50 MG TAB PO SCH (08:33)
[2022-04-24] MEDS: ACEBUTOLOL HCL 200 MG CAPSULE PO SCH (08:33)
[2022-04-24] MEDS: DOCUSATE SODIUM 100 MG CAP PO SCH (08:33)
[2022-04-24] MEDS: ASPIRIN 81 MG ECTAB PO SCH (08:33)
[2022-04-24] MEDS ORDERED: ESCITALOPRAM OXALATE 10 MG TAB PO SCH (09:00)
[2022-04-24] MEDS ORDERED: UMECLIDINIUM BROMIDE 62.5MCG/BLISTER 7 PUFFS/INHALER INH SCH (09:00)
[2022-04-24] MEDS ORDERED: FENOFIBRATE NANOCRYSTALLIZED 145 MG TABLET PO SCH ×2 (09:00)
[2022-04-24] MEDS ORDERED: MULTIVITAMIN TAB PO SCH (09:00)
== END 2022-04-24 11:05 | disposition home health service (06) ==
LOC: ASU 07:48 → 3N 07:48